=== PATIENT | female | born 1945 | race Caucasian/White ===

== ENCOUNTER 2024-09-30 12:46 | Outpatient (CLI) | payer MEDICARE, BC, SELFPAY ==
--- NOTE | 2024-09-30 13:00 | CRLHL7_ITS ---
For Patients: As a result of the Century Cures Act, medical imaging exams and procedure reports are released immediately into your electronic medical record. You may view this report before your referring provider. If you have questions, please contact your health care provider. Indication: Scoliosis. Technique: Noncontrast sagittal and axial T1, T2, and sagittal STIR sequences are provided. Comparison: Lumbar radiographs 09/20/2024 Findings: Levoscoliosis with apex at L4 and dextroscoliosis with apex at T12. No compression fractures. No prevertebral or paraspinal edema. Modic type 2 degenerative changes at T11-12, L1-2, L3-4, L4-5 and L5-S1. Modic type 1 degenerative changes at L5-S1 and T12-L1. The conus medullaris is normal in signal and located at L1-2. No aggressive osseous lesions. Degenerative grade 1 anterolisthesis at L4-5. Right hepatic cysts. Atrophy of the right paraspinal muscles. T12-L1: Mild disc bulge eccentric to left and left facet arthrosis with ligamentum flavum buckling. No significant spinal canal stenosis. Mild-moderate left neural foraminal narrowing. No right neural foraminal narrowing. L1-2: Moderate interspace narrowing. Mild disc bulge and endplate osteophytic ridging. Mild facet arthrosis. Mild left neural foraminal narrowing. No right neural foraminal narrowing. No significant spinal canal stenosis. L2-3: Moderate interspace narrowing. Diffuse disc bulge. Moderate facet arthrosis. Mild right lateral recess stenosis. Mild neural foramen narrowing bilaterally. L3-4: Moderate interspace narrowing. Mild disc bulge and right lateral endplate osteophytic ridging. Small left central disc protrusion without significant stenosis. Moderate right and mild left facet arthrosis. Sxxa-vk-gkrytxjo right neural foraminal narrowing. No left neural foraminal narrowing. L4-5: Moderate interspace narrowing. Grade 1 anterolisthesis. Uncovering of the disc. Advanced facet arthrosis and ligamentum flavum buckling. Mild to moderate right lateral recess stenosis and possible impingement of the traversing right L5 nerve roots. Moderate-severe right neural foraminal narrowing with likely impingement of the exiting right L4 nerve roots. Mild left neural foramen narrowing. L5-S1: Moderate interspace narrowing. Mild disc bulge contacts the traversing right S1 nerve roots. Mild bilateral neural foramen narrowing. Impression: 1. No fractures. Biconvex curvature of the lumbar spine with apex to left at L4 and apex to the right at T12. Multilevel endplate degenerative changes. 2. At L4-5, degenerative grade 1 anterolisthesis with mild to moderate right lateral recess stenosis and possible impingement of the traversing right L5 nerve roots. Moderate-severe right neural foraminal narrowing with likely impingement of the exiting right L4 nerve roots. 3. At L5-S1, disc bulge contacts the traversing right S1 nerve roots without libertad impingement. 4. Milder degenerative changes at remaining levels. Dictated by Rordigo Rivera MD @ 10/01/2024 8:38:31 AM (Electronically Signed)
== END 2024-09-30 12:47 | disposition home or self-care (01) ==
LOC: MRI 12:48
PROVIDERS: PCP Family Medicine; Visit Provider Physician Assistant
DX: M41.9 Scoliosis, unspecified (principal); M51.26 Other intervertebral disc displacement, lumbar region; M51.27 Other intervertebral disc displacement, lumbosacral region; M54.50 Low back pain, unspecified; M25.552 Pain in left hip
CPT/HCPCS: 72148

== ENCOUNTER 2024-12-12 10:46 | Outpatient (CLI) | payer MEDICARE, BC, SELFPAY ==
--- NOTE | 2024-12-12 11:00 | CT_ITS ---
Patient: KAUR FLOR Facility:?[facility] Patient ID:?[id number] Site Patient ID:?[id number]. Site :?[id number] Study:?CT-Spine Lumbar WITHOUT-12/12/2024 11:17:10 AM Ordering Physician:Vika Mcclure Final Report: INDICATION: Sacrococcygeal disorders, pain, lumbar spondylosis. TECHNIQUE: Lumbar spine CT was performed without the administration of intravenous contrast. COMPARISON: : Lumbar spine MRI 09/30/2024. FINDINGS: Moderate/severe scoliotic curvature of the thoracolumbar spine with levoconvex curvature of the lower lumbar spine, dextroconvex curvature of the upper thoracolumbar spine, grade 1 right lateral listhesis of L2 on L3, and grade 1 anterolisthesis of L4 on L5. No evidence of acute displaced fracture. The vertebral body heights are maintained. Multilevel degenerative changes including disc space height loss, endplate, and bone marrow changes. Multilevel moderate facet joint hypertrophy. Significant findings by level: T12-L1: Moderate left neural foraminal stenosis due to disc space height loss, disc bulge, and facet joint hypertrophy. Disc bulge effaces the thecal sac without significant spinal canal narrowing. L1-L2: Mild left neural foraminal stenosis due to disc space height loss, disc/osteophyte complex, and facet joint hypertrophy. No significant spinal canal narrowing. L2-L3: Mild neuroforaminal stenosis bilaterally with abutment of the exiting left L2 nerve root due to disc space height loss, far left lateral disc bulge, and facet joint hypertrophy. Disc bulge effaces the thecal sac without significant spinal canal narrowing. L3-L4: Moderate right neural foraminal stenosis due to disc space height loss, disc/osteophyte complex, and facet joint hypertrophy. No significant spinal canal narrowing. L4-L5: Partial effacement of the right lateral recess with possible abutment of the descending right L5 nerve root, severe right neural foraminal stenosis with abutment of the exiting right L4 nerve root, and mild left neural foraminal stenosis due to disc space height loss, anterolisthesis, disc bulge/disc uncovering, and facet joint hypertrophy. L5-S1: Partial effacement of the right lateral recess with abutment of the descending right S1 nerve root, better evaluated on prior MRI. Mild neural foraminal stenosis bilaterally due to disc space height loss, disc/osteophyte complex, and facet joint hypertrophy.. The visualized soft tissues are within normal limits. IMPRESSION: 1. Moderate/severe scoliotic curvature of the thoracolumbar spine with grade 1 right lateral listhesis of L2 on L3 and grade 1 anterolisthesis of L4 on L5. 2. Degenerative changes including multilevel mild, moderate, and severe neural foraminal stenosis and multilevel abutment of descending and exiting nerve roots as detailed above. No significant spinal canal stenosis. Please note that all CT scans at this facility use dose modulation, iterative reconstruction, and/or weight-based dosing when appropriate to reduce radiation dose to as low as reasonably achievable. Dictated by Gary Easton MD @ 12/12/2024 6:44:49 PM Signed by:?Gary Easton MD @12/12/2024 6:44:49 PM (Electronic Signature)
--- NOTE | 2024-12-12 11:00 | CRLHL7_ITS ---
For Patients: As a result of the Cures Act, medical imaging exams and procedure reports are released immediately into your electronic medical record. You may view this report before your referring provider. If you have questions, please contact your health care provider. EXAM: CT OF THE PELVIS, WITHOUT CONTRAST CLINICAL INDICATION: Sacrococcygeal disorder and pain. COMPARISON STUDIES: Lumbar spine CT from same day. TECHNICAL: Non-contrast CT of the pelvis with axial images. Sagittal oblique and coronal oblique reformatted images were created. FINDINGS: OSSEOUS STRUCTURES: No fracture, callous formation or periosteal reaction. No worrisome osseous lesion. Benign bone island in the right acetabulum. No evidence for chronic avascular necrosis. JOINT SPACES: Right Hip: Mild joint space narrowing and hypertrophic change. No joint effusion. Left Hip: Mild joint space narrowing and hypertrophic change. No joint effusion. SI Joints: Mild degenerative sclerosis and hypertrophic change bilaterally, right greater than left. No ankylosis. Pubic Symphysis: Mild degenerative changes. MUSCLES AND TENDONS: No intramuscular mass or hematoma. No muscle atrophy. No retracted tendon tear. SOFT TISSUES: No subcutaneous edema, fluid collection or hematoma. INTRAPELVIC CONTENTS: No free fluid or hematoma. No inguinal hernia. Hysterectomy. Surgical clips in the pelvis. Colonic diverticula. IMPRESSION: 1. Mild degenerative changes in the pubic symphysis, hips and SI joints. 2. Hysterectomy. 3. Colonic diverticula. 4. Benign bone island in the right acetabulum. Please note that all CT scans at this facility use dose modulation, iterative reconstruction, and/or weight-based dosing when appropriate to reduce radiation dose to as low as reasonably achievable. Dictated by Adrien Seymour MD @ 12/13/2024 10:41:48 AM (Electronically Signed)
== END 2024-12-12 10:47 | disposition home or self-care (01) ==
LOC: CT 10:48
PROVIDERS: PCP Family Medicine; Visit Provider Physician Assistant
DX: M53.3 Sacrococcygeal disorders, not elsewhere classified (principal); K57.30 Diverticulosis of large intestine without perforation or abscess without bleeding; M47.816 Spondylosis without myelopathy or radiculopathy, lumbar region
CPT/HCPCS: 72131; 72192

== ENCOUNTER 2025-01-31 13:34 | Emergency (ER) | payer MEDICARE, BC, SELFPAY ==
--- OUTSIDE RECORDS SUMMARY | 2025-01-31 13:37 | XMS_ITS | Clinical Summary ---
Author Organization [facility] Address [address] [place] [address] Care Team Providers Care Embroiderer Hand Name Role Phone Inactive, Administrativel Primary Care Provider Source Comments If you need additional information that is not available on Care Everywhere, please contact our Medical Records Department during business hours (Monday - Monday, 8 am - 5 pm) at . During nonbusiness hours, please contact our Trauma and Emergency Center at .[facility] [place] Allergies Active Allergy Reactions Criticality Noted Date Comments Metoclopramide Other 04/05/2016 . Medications * Medications may not be up to date as of this document. Always verify current medications with the patient. estradiol (ESTRACE) 0.5 mg tablet Take 1 Tab by mouth every other day. 0 02/08/2016 Active oxyCODONE-acetam inophen (PERCOCET-EQUIVA LENT) 5-325 mg tablet Take 0.5 Tabs by mouth every 6 hours as needed. 0 03/08/2016 Active traZODone (DESYREL-EQUIVAL ENT) 50 mg tablet Take 1 Tab by mouth bedtime. 0 03/23/2016 Active valACYclovir (VALTREX) 1 gram tablet Take by mouth as directed:. 2 03/31/2016 Active buPROPion XL (WELLBUTRIN XL) 300 mg extra long release tablet Take 1 Tab by mouth daily. 1 02/08/2016 Active diazepam (VALIUM-EQUIVALE NT) 5 mg tablet Take 1 Tab by mouth daily. 5 03/08/2016 Active levothyroxine 100 mcg tablet Take 1 Tab by mouth daily. 1 02/08/2016 Active spironolactone (ALDACTONE-EQUIV ALENT) 25 mg tablet Take 1 Tab by mouth daily. 4 03/16/2016 Active SUMAtriptan (IMITREX) 50 mg tablet Take 0.5 Tabs by mouth as needed For migraine. May repeat in 2 hours if needed.. 6 03/31/2016 Active Active Problems No known active problems Social History Tobacco Use Types Packs/Day Years Used Date Smoking Tobacco: Never Smokeless Tobacco: Never Tobacco Cessation:Counseling Given: No Comments Unknown Sex and Gender Information Value Date Recorded Sex Assigned at Not on file Legal Sex Female 4:16 PM CDT Gender Identity Not on file Sexual Orientation Not on file Obstetrics History Last Filed Vital Signs Vital Sign Reading Time Taken Comments Blood Pressure 140/52 04/05/2016 1:09 PM CDT Pulse 104 04/05/2016 1:09 PM CDT Temperature - - Respiratory Rate - - Oxygen Saturation - - Inhaled Oxygen Concentration - - Weight 55.1 kg (121 lb 7.6 oz) 04/05/2016 1:09 P M CDT Height - - Body Mass Index - - Plan of Treatment Not on file Care Teams Embroiderer Hand Relationship Specialty Start Date End Date Inactive, Administrativel [address] [facility] [address] PCP - General 04/06/16
--- OUTSIDE RECORDS SUMMARY | 2025-01-31 13:37 | XMS_ITS | Data Portability ---
Author Organization [place] - [facility], [facility] Address [address] [place] [address] Care Team Providers Care Fuller Brush Worker Name Role Phone LAUREN CREWS Primary Care Provider [phone] Assessment Encounter Date Assessment Date Assessment LastModified by Organization Details LastModified Time 12/03/2024 12/03/2024 Assessment Multilevel Spondylosis L4-L5 Spondylolisthesis L4-S1 nerve root compression w/ LLE Radic Degenerative scoliosis SIJ dysfunction Plan: -Discussed the patient's physical exam and reviewed their imaging - Discussed all treatment options and agreed upon the following: - All questions answered to the patient's satisfaction - They will call the clinic or return if they have any interim concerns to wear the brace during activity - Activity: WBAT, Instructed to BLTs, avoid strenuous activity and heavy lifting - Pain control: recommended course of OTC NSAIDs and tylenol if no medical contraindications - Imaging: L/P CT w/o of spine ordered - FU: Patient to return to the clinic w/ [facility] Not available 12/03/2024 13:59:04 Plan of Treatment Reminders Order Date Submit Date Provider Last Modified By Organization Details Last Modified Time Details Appointments FOLLOW UP 15 2024 01:00P Booker Jeffers MD Not available Not available Not available Lab None recorded . Referral None recorded . Procedures None recorded . Surgeries None recorded . Imaging None recorded . Medication Orders None recorded . Patient TargetsNo targets recorded. Patient Instructions Encounter Date Encounter Id Patient Instructions Last Modified By Organization Details Last Modified Time 12/03/2024 [id number] Discussion: I discussed the clinical findings with the patient. All questions were answered. Risk factors reviewed with the patient and a L/P CT w/o was ordered. Synopsis: 12/03/24, GOLDEN, CHARLES: L MR w/o (09/30/24) at [facility]: Multilevel Spondylosis ahaberer Not available 12/03/2024 13:59:40 Reason for Referral None Reported. Results Created Date Observation Date Name Description Value Unit Range Abnormal Flag Note LastModifiedBy Organization Detail LastModifiedTime 11/28/19 25 09/30/2024 MRI, lumba r spine , w/o contr ast No observ ation record ed. [email or web address] Not Available 2024 12:35:55 11/29/1903/13/2003 MRI, lumba r spine , w/o contr ast No observ ation record ed. [email or web address] Not Available 2024 12:54:42 12/14/19 25 12/12/2024 CT, pelvi s, w/o contr ast No observ ation record ed. [facility] [address] [place], [address], 12/17/2024 11:19:24 12/17/19 25 12/12/2024 CT, lumba r spine , w/o contr ast No observ ation record ed. [facility] [address] [place], [address], 12/17/2024 11:19:25 12/21/19 25 12/12/2024 CT, lumba r spine , w/o contr ast No observ ation record ed. [address], [place], [address], 12/25/2024 10:24:41 Result Notes None recorded. Medical Equipment None Reported. Allergies Allergen ID Allergen Name Allergen Category Reaction Reaction Severity Criticality Documentation Date Start Date Code Code System Note Provider Name and Address Organization Details Recorded Time 60504 metoclopr amide hydrochlo ride medicatio n Not available Not available high 12/03/20242011 41539 6 RxNorm unrec ogniz ed react ion (text : Behav ioral Distu rbanc es, code: 07592 006) (from exter nal sourc e) Zoie Talbot null, [place] - [facility] 12:56:00 83396 gabapenti n medicatio n Not available Not available Not available 12/03/2024 92352 RxNoTYLER Suarez [facility] 12:55:46 83866 Reglan medicatio n Not available Not available Not available 12/03/2024 9230 RxMyesharm Zoie saucedo [facility] 12:55:57 Medications Name Sig Start Date Stop Date Status Note LastModified by Organization Details LastModified Time amoxicillin 500 mg capsule TAKE 4 CAPSULES BY MOUTH ONE HOUR PRIOR TO DENTAL TREATMENT . 12/03 completed Not Available Not Available Not Available trazodone 50 mg tablet TAKE 1/2 TO 1 TABLET BY MOUTH AT BEDTIME NEEDED FOR SLEEP active Not Available Not Available No t Available valacyclovi r 1 gram tablet TAKE TWO TABLETS BY MOUTH EVERY 12 HOURS FOR 1 DAY NEEDED FOR COLD SORES 12/03 completed Not Available Not Available Not Available sumatriptan 50 mg tablet TAKE ONE-HALF TABLET BY MOUTH TWICE A DAY NEEDED FOR MIGRAINE 2HRS APART MAX 200MG IN 24HRS active Not Available Not Available No t Available sulfamethox azole 800 mg-trimetho prim 160 mg tablet TAKE ONE TABLET BY MOUTH TWICE A DAY FOR 3 DAYS 12/03 completed Not Available Not Available Not Available spironolact one 25 mg tablet TAKE ONE-HALF TABLET BY MOUTH EVERY DAY active Not Available Not Available No t Available levothyroxi ne 88 mcg tablet TAKE ONE TABLET BY MOUTH EVERY DAY 12/03 completed Not Available Not Available Not Available clindamycin phosphate 1 % topical solution APPLY 10 TO 15 DROPS TO SCALP TWO TIMES A DAY FOR FLARES 12/03 completed Not Available Not Available Not Available modafinil 100 mg tablet TAKE ONE TABLET BY MOUTH EVERY MORNING active Not Available Not Available No t Available bupropion HCl XL 300 mg 24 hr tablet, extended release TAKE ONE TABLET BY MOUTH EVERY DAY active Not Available Not Available No t Available L-Thyroxine 88 mcg active Not Available Not A vailable Not Available Wellbutrin SR 300 mg active Not Available Not Available Not Available oxycodone 10 mg tablet TAKE ONE TABLET BY MOUTH EVERY 4 HOURS NEEDED. MAX OF 6 TABLETS IN 24 HOURS. MUST LAST 30 DAYS active Not Available Not Available No t Available Vitals Date Recorded Body height Body mass index (BMI) Body weight Provider Name and Address Organization Details Last Updated DateTime 12/03/2024 165.1 cm 20.8 kg/m2 92947.05 brodie Talbot [place] [employer] [facility] 12/03/2024 13:08:50 Social History Question Answer Notes LastModified by [employer] Details LastModified Time Tobacco Smoking Status Never Smoker Zoie saucedo [place] [employer] [facility] 12/03/2024 12:58:19 What Was The Date Of Your Most Recent Tobacco Screening? 12/03/2024 Information not available 12/03/2024 Has Tobacco Cessation Counseling Been Provided? No Information not available 12/03/2024 Sex: Unknown Functional Status Question Answer Note LastModified by [employer] Details LastModified Time Do you use any illicit or recreational drugs? No Information not available 12/03/2024 Do you or have you ever used any other forms of tobacco or nicotine? No Information not available 12/03/2024 What is your level of alcohol consumption? None Information not available 12/03/2024 Mental Status None recorded. Family History Relationship Description Onset Age of this Age Resolved Age Notes LastModified by Organization Details LastModified Time Father No current problems or disability Not available 12/03 13:09:13 Mother No current problems or disability Not available 12/03 13:09:13 Medical History Condition Response Muscle, Joint, or Bone Problems Y Arthritis Y Headaches Y GI Problems Y Gynecological HistoryNo gynecological history recorded. Obstetrics History GPAL:G 0 P 0 0 0 0 Past Encounters Encounter ID Performer Location Encounter Start Date Encounter Closed Date Diagnosis/Indication Diagnosis SNOMED-CT Code Diagnosis ICD10 Code Diagnosis Note [id number] ORLY HSIEH PA-C [facility] [address] [facility] [address] [place] [address] 12/03/2024 12:43:25 12/11/2024 14:38:45 Lumbar spondylosis 565141033 M47.816 Lumbar spondylolisthesis 5686761899 43120 M43.16 Degenerati on of lumbar intervertebral disc 90679374 M51.362 Spinal matt nosis of lumbar region 41531937 M48.061 Stenosis o f intervertebral foramina 4778870508 09 M48.00 Scoliosis of lumbar spine 294113257 M41.9 Sacroiliac disorder 2027 46373 M53.3 Health Concerns Section Related Observation LastModified by Organization Detai ls LastModified Time None Recorded Concern Status LastModified by Organization Details LastModified Time None Recorded Advance Directives Directive None Recorded Payers Insurance Date Sequence Insurance Name Policy Number Policy [place] Covered Member ID Villa Member ID Guarantor Name 01/27/2025 1 [employer] (MEDICARE [place]PLACEMENT PPO) [id number] Aisha Raman [id number] Aisha Raman Notes Date Note Type Note Provider Name and Address Organization Details Recorded Time 12/03/2024 text/html Chief Complaint: HPI:Aisha is a 79-year-old female who presents today to establish care with our team at [facility]. She has a longstanding history of back pain spanning over 40 years, for which she has sought various treatments. Aisha has been diligent in her efforts to manage her pain, having undergone physical therapy at multiple locations, with the most recent session ending in September of 2024 at [facility] in [place], [place]. She has tried numerous bracing mechanisms and received several injections, the last being a transforaminal lumbar epidural steroid injection in December 2023. In her quest for relief, Aisha has also explored radiofrequency ablations, acupuncture, TENS units, caaz-gfw-usuoxob supplements, lidocaine patches, and a regimen of medications including Tylenol, Cymbalta, Tramadol, Gabapentin, Celebrex, Percocet, and is currently on oxycodone 10mg prescribed by an outside provider. She reports that oxycodone offers some relief but fails to alleviate pain while walking. Her mobility is limited, as she can only stand for about 30 minutes before needing to sit down due to pain. 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 Today, she presents with a lumbar MRI from September 09, 2024, which we reviewed together and noted listhesis degeneration, nerve impingements in the lower lumbar area, and some SIJ dysfunction, although she is unsure if she has received SIJ injections. We have updated her protocol checklist, ordering a lumbar and pelvic CT scan to be done in [place], [place], and arranged for a follow-up with Dr. Jeffers for a surgical consultation after the imaging is obtained. I have encouraged Aisha to contact me with any questions, comments, or concerns she may have. Pain level right now: 6/10Pain range: 9/10 ORLY HSIEH PA-C [address], [place], [address], [facility] - [facility] 12/03/2024 13:59:54 OBGyn Episode No OBEpisode recorded.
--- OUTSIDE RECORDS SUMMARY | 2025-01-31 13:37 | XMS_ITS | Clinical Summary ---
Author Organization [facility] Address [address] [place] [id number] Care Team Providers Care Cloud Architect Name Role Phone Gary Matthews MD Unavailable Unavailable Luisana Benjamin DO Primary Care Provider [phone] Allergies Active Allergy Reactions Criticality Noted Date Comments Gabapentin *Unknown 01/06/2025 Metoclopramide Hcl Behavioral Disturbances,*Unkno wn Medium 01/26/2012 Quinolones Other - Describe In Comment Field 01/27/2022 Not allergy but CONTRAINDICATED with EDS Medications MULTIVITAMIN ORAL Take 1 tablet by mouth once daily. Active ferrous sulfate 325 mg delayed release tabletIndicatio ns:Iron deficiency anemia, unspecified iron deficiency anemia type 1 tab daily 90 tablet 1 08/22/19 18 Active ascorbic acid SR (VITAMIN C) 500 mg capsule Take 2 capsules by mouth once daily. 0 03/12/20 20 Active Cranberry 400 mg capsule Take by mouth. 0 09/24/19 22 Active valACYclovir (VALTREX) 1 gram tabletIndicatio ns:Hx of cold sores TAKE TWO TABLETS BY MOUTH EVERY 12 HOURS FOR 1 DAY NEEDED FOR COLD SORES 12 Tablet 03/19/20 24 Active buPROPion (WELLBUTRIN XL) 300 mg Extended-Releas e tabletIndicatio ns:Depression, recurrent 300mg po daily 90 Tablet 3 05/07/20 24 Active SUMAtriptan 50 mg tabletIndicatio ns:Other migraine without status migrainosus, not intractable TAKE ONE-HALF TABLET BY MOUTH TWICE A DAY NEEDED FOR MIGRAINE MINIMUM 2 HOURS APART MAX 200 MG IN 24 HOURS 18 Tablet 3 10/15/19 25 Active levothyroxine 88 mcg tabletIndicatio ns:Hypothyroidi sm, unspecified type TAKE ONE TABLET BY MOUTH EVERY DAY 90 Tablet 3 11/12/19 25 Active modafiniL 100 mg tabletIndicatio ns:Depression, recurrent,Ehler s-Danlos, hypermobile type (HC),Other fatigue Take 1 Tablet (100 mg) by mouth once daily in the morning. 30 Tablet 2 11/27/19 25 Active traZODone 50 mg tabletIndicatio ns:Insomnia, unspecified type Take 0.5-1 Tablets (25-50 mg) by mouth at bedtime if needed for Sleep. 90 Tablet 1 12/17/19 25 Active spironolactone 25 mg tabletIndicatio ns:Acne, unspecified acne type TAKE ONE-HALF TABLET BY MOUTH EVERY DAY 45 Tablet 01/07/20 25 Active oxyCODONE 10 mg tabletIndicatio ns:Other chronic pain TAKE ONE TABLET BY MOUTH EVERY 4 HOURS NEEDED MAXIMUM 6 TABLETS IN 24 HOURS. MUST LAST 30 DAYS 180 Tablet 01/26/20 25 Active spironolactone (ALDACTONE) 25 mg tabletIndicatio ns:Acne, unspecified acne type 1/2 tablet daily 45 Tablet 3 01/04/20 24 025 Discontinued oxyCODONE 10 mg tabletIndicatio ns:Other chronic pain TAKE ONE TABLET BY MOUTH EVERY 4 HOURS NEEDED MAXIMUM 6 TABLETS IN 24 HOURS, MUST LAST 30 DAYS 180 Tablet 12/28/19 25 025 Discontinued Active Problems Problem Noted Date Diagnosed Date Major depressive disorder, recurrent episode, mo derate 04/10/2023 Generalized anxiety disorder 04/10/2023 Other osteoporosis without current pathological fracture 02/13/2022 Overview (02/13/2022): Dexa January 2022 +osteoporosis. Recommend treatment. Patient reports prior decreased bone density before 2018 and was on fosamax for approximately 1 month and noted thumb pain after 2 weeks, stopped and resolved. 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 See scanned [facility] Hand arthritis 06/06/2016 Overview (08/17/2016): See [facility] scanned Osteopenia 06/06/2016 Overview (06/06/2016): Dexa 09/18/2006 T score -2.1, on fosamax. 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 Benjamin) 01/06/2025 Travel 01/04/2025 Refill [facility] [address] [place] [address] Luisana Benjamin DO Refill Request (Spironolactone) 01/01/2025 Travel 12/27/2024 2:20 PM CDT Office Visit [facility] [address] [place] [address] Luisana Benjamin DO Follow Up (discuss spine management ); Medication Management (would like to discuss oxycodone ) 12/27/2024 Travel 12/24/2024 Travel 12/14/2024 Refill [facility] [address] [place] [address] Luisana Benjamin DO Refill Request (Trazodone) 12/12/2024 Orders Only [facility] Scanner 1 scan: (1-Ord) [facility], CT SPINE LUMBAR, 12/12/2024 12/12/2024 Orders Only [facility] Scanner 1 scan: (1-Ord) [facility], PELVIS WO CON, 12/12/2024 11/26/2024 Refill [facility] [address] [place] [address] Yamilet Dong MD Refill Request (Modafinil/) 11/20/2024 Travel 11/11/2024 9:35 AM CDT Office Visit [facility] [address] [place] [address] Luisana Benjamin DO Hip Pain/problem (Injection in left hip bursa) 11/11/2024 Travel 11/09/2024 Refill [facility] [address] [place] [address] Luisana Benjamin DO Refill Request (Levothyroxine) 11/08/2024 Travel 11/06/2024 11:40 AM CDT Office Visit [facility] [address] [place] [address] Luisana Benjamin DO Medication Management; Immunization/Injection 11/05/2024 Travel from Last 3 Months Immunizations Immunization Administration Dates Next Due COVID-19 VACCINE SPIKEVAX (M ODERNA 50MCG/0.5ML) 12YO+ PFS 11/06/2024,04/30/2024,01/04/2024,2023 COVID-19 vaccine (Pfizer-Bio NTech 30mcg/0.3mL) 12YO+ GIBRAN-SUCROSE PF, MDV 01/27/2022 COVID-19 vaccine (Pfizer-Bio NTech 30mcg/0.3mL) PF, MDV 04/29/2021 Hepatitis A, Unspecified 08/16/2013 INFLUENZA, IIV3 PF (AGE >= 6 MO) 04/25/2007 Influenza A (H1N1), Inactiva dinh (Age >=3 Years) 07/15/2009 Influenza, High-dose Inactivated 05/09/2016,03/12,03/31/2014 Influenza, High-dose Quadriv alent Inactivated 05/27/2020 Influenza, IIV3 (Age >=3 years) 05/10/2013,04/21,04/25/2007 Influenza, Inactivated AIIV4 (Age 65+ Years) Preserv Free 03/30/2023,05/03/2022,05/13/2021 Influenza, Inactivated IIV3 (Age 65+ Years) Preserv Free 04/30/2024,05/29/2019,03/13/2018,2016 Pneumococcal Poly,23-Valent (Pneumovax) 02/15/2011 Pneumococcal conj 13-Valent (Prevnar 13) 10/27/2014,02/17/2011 Tdap 04/19/2021,08/16/2013 Zoster (Zostavax-ZVL, live) 12/20/2012 Family History Medical History Relation Name Comments Rheum arthritis Mother Melanoma Sister Relation Name Status Comments Father Mother Sister Social History Tobacco Use Types Packs/Day Years Used Date Smoking Tobacco: Never Passive Smoke Exposure: Never Smokeless Tobacco: Never Tobacco Cessation:Counseling Given: Not Answered Comments:05/07/2024 Alcohol Use Standard Drinks/Week Comments Yes 0 (1 standard drink = 0.6 oz pur e alcohol) 1 drink a amonth PHQ-2 Answer Date Recorded PHQ-2 TOTAL SCORE 2 12/27/2024 Social Connections Answer Date Recorded Do you often feel lonely or isolated from those around you? 0 08/06/2024 Alcohol Use Answer Date Recorded How often do you have a drink containing alcohol ? 1 03/26/2024 Average Number of Drinks Not on file 024 Frequency of Binge Drinking Not on file 03/10 Financial Resource Strain Answer Date R ecorded Difficulty of Paying Living Expenses 3 08/06/2024 Difficulty of Paying Living Expenses Not on file 08/06/2024 Food Insecurity Answer Date Recorded Do you worry your food will run out before you are able to buy more? 1 08/06/2024 Transportation Needs Answer Date Record ed Does lack of transportation keep you from medica l appointments? 1 08/06/2024 Does lack of transportation keep you from work, meetings or getting things that you need? 1 08/06/2024 Housing Stability Answer Date Recorded What is your housing situation today? 1 08/06/2024 Utilities Answer Date Recorded Do you have trouble paying f or utilities (for example, heat, electricity, water, phone)? 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 Gender Identity Not on file Sexual Orientation Not on file Obstetrics History Last Filed Vital Signs Vital Sign Reading Time Taken Comments Blood Pressure 142/83 01/06/2025 1:09 PM CDT Pulse 85 01/06/2025 1:09 PM CDT Temperature 36.7 C (98.1 F) 01/06/2025 1:09 PM CDT Respiratory Rate 22 12/13/2022 10:20 AM CDT Oxygen Saturation 97% 01/06/2025 1:09 PM CDT Inhaled Oxygen Concentration - - Weight 57.2 kg (126 lb 1.6 oz) 12/27/2024 2:19 P M CDT Height 162.6 cm (5' 4) 05/07/2024 11:47 AM CDT Body Mass Index 21.65 05/07/2024 11:47 AM CDT Plan of Treatment Upcoming Encounters Date Type Department Care Team (Late st Contact Info) Description 03/04/2025 12:45 PM CDT Office Visit [facility] [address] [place] [address] [place] [address] [place] [address] Health Maintenance Due Date Last Done Comments Medicare Wellness for age 65+ 2010 Zoster (shingles) series for age 50+ (2 of 3) 02/14/2013 12/20/2012 RSV vaccine for adults or (1 - 1-dose 75+ series) 2020 Influenza Vaccine (#1) 2025 , 03/30/2023, 05/03/2022, Additional history exists BMI (ht and wt on same day) for age 18+ 05/07/2025 05/07/2024, 10/19/2023, 05/13/2021, Additional history exists Depression screening for age 12+ 12/27/2025 12/27/2024, 05/07/2024, 03/26/2024, Additional history exists Tetanus booster 04/19/2031 04/19/2021, 08/16/2013 Pneumococcal series for age 50+ Completed 10/27/2014, 02/17/2011, 02/15/2011 Hepatitis C screening for age 18-79 Completed 02/25/2019 DEXA/DXA scan for age 65+ Completed 02/08/2022 COVID-19 vaccine series Completed 11/07/19, 04/30/2024, 01/04/2024, Additional history exists Hepatitis B series for 19+ Aged Out N o longer eligible based on patient's age to complete this topic Procedures Procedure Name Priority Date/Time Associated Diagnosis Comments SCAN-CT INTERPRETATION 12:00 AM CDT SCAN-CT INTERPRETATION 12:00 AM CDT TSH Routine 11/06/2024 12:59 PM CDT Hypothyroidism, unspecified type XR DXA BONE DENSITY 2 SITES AXIAL Routine 02/08/2022 1:18 PM CDT Osteopenia, unspecified location Other specified disorders of bone density and structure, multiple sites ANTI HCV Routine 02/25/2019 2:27 PM CDT Need for hepatitis C screening test from Last 3 Months or Most Recently Relevant to Health Maintenance Results * SCAN-CT INTERPRETATION (12/12/2024 12:00 AM CDT) Only the most recent of2 resultswithin the time period is included. Anatomical Region Laterality Modality Other us Scanner OTHER Final Result * TSH (11/06/2024 12:59 PM CDT) TSH 1.62 0.40 - 4.50 mIU/L [facility] Blood BLOOD SPECIMEN / Unknown 11/06/2024 12:59 PM CDT 11/06/2024 1:00 PM CDT Luisana Benjamin DO CHEMISTRY Final Resu lt [facility] [address] [place] [address], [facility] [address] [place] [address] * (ABNORMAL) XR DXA BONE DENSITY 2 SITES AXIAL (02/08/2022 1:18 PM CDT) Anatomical Region Laterality Modality Spine, HIPS, HIPL, HIPR Other Impressions 02/09/2022 4:41 PM CDT Osteoporosis. RECOMMENDATIONS: The National Osteoporosis Foundation recommends pharmacologic treatment for patients with T-scores of -2.5 or less, patients with prior history of fragility fractures, or patients with 10-year probability of greater than 3% at hips or greater than 20% of suffering major osteoporotic fractures. Recommend continued optimization of calcium and vitamin D intake through dietary means and/or supplementation and regular exercise. Consider pharmacologic therapy for osteoporosis. Follow-up bone density reading in 2 years if therapy initiated to assess therapeutic efficacy. Rossi Stewart PA-C [facility] 02/09/2022 Narrative 02/09/2022 4:41 PM CDT For Patients: Results are automatically released to your [facility] account once available, in compliance with federal regulations. This means that you may see your results before your provider has had a chance to review them. Please allow 2-3 business days for your provider to comment on the results. XR DXA Bone Mineral Density (BMD) EXAM LOCATION: [facility] [address] [facility] [address] PATIENT NAME: Aisha Raman DATE OF : 1945 EXAM DATE: 02/08/2022 REQUESTING PROVIDER: Luisana Benjamin DO GENDER AT : female HEIGHT: 5' 4 (05/13/2021) WEIGHT: 125 lb (01/27/2022) MENOPAUSAL STATUS: Postmenopausal RACE/ETHNICITY: White RISK FACTORS: Height Loss (2 inches or more), History of Fragility Fracture (at a major site), Weight < 127 lbs. and White Race CURRENT MEDICATION FOR BONE LOSS: Alendronate (Fosamax) INDICATION: Follow-up of existing osteopenia COMPARISON DATE(S): None DXA scans are compared to prior studies for a patient only when the two (or more) studies were performed on the same scanner. It is not possible to compare data generated on one scanner to data from another because there are not standards in DXA equipment. This applies even if the two scanners are made by the same inspector insulation. PROCEDURE: Dual-energy x-ray absorptiometry performed with routine technique. Reporting is completed in the form of a T-score. The T-score represents the standard deviation from peak bone mass based on young healthy adult. A Z-score is used for diagnosis in premenopausal women, and for men under the age of 50. FINDINGS: RESULT LUMBAR SPINE L1 - L4(L2) BMD: 1.224 g/cm2 T-Score: + 0.3 Z-Score: + 2.3 Change from prior: None RESULTS FEMUR Left femoral neck BMD: 0.667 g/cm2 T-Score: - 2.7 Z-Score: - 0.5 Change from prior: None Right femoral neck BMD: 0.593 g/cm2 T-Score: - 3.2 Z-Score: - 1.1 Change from prior: None Left hip BMD: 0.661 g/cm2 T-Score: - 2.8 Z-Score: - 0.8 Change from prior: None Right hip BMD: 0.5767 g/cm2 T-Score: - 3.5 Z-Score: - 1.5 Change from prior: None WHO criteria: Normal: T-score at or above -1 SD Osteopenia: T-score between -1.1 and -2.4 SD Osteoporosis: T-score at or below -2.5 SD Luisana Benjamin DO DEXA Final Resu lt * ANTI HCV (02/25/2019 2:27 PM CDT) Pathologist [facility] HEPATITIS C ANTIBODY Non-React bozena Non-React bozena 02/25/2019 9:06 PM CDT [facility] Comment:Antibodies to HCV no t detected; does not exclude the possibility of exposure to HCV. Blood BLOOD SPECIMEN / Unknown Venipuncture / Unknown 02/25/2019 2:27 PM CDT 02/25/2019 2:27 PM CDT us Luisana Singerlinnea DO SEND OUTS Final Resu lt [facility] [address] [place] [address], [place] from Last 3 Months or Most Recently Relevant to Health Maintenance Insurance [employer] Member Subscriber Plan / Payer ( fective 2013-Present) Name:Aisha Raman Relation to Subscriber:Self Name:Aisha Raman Payer ID:[id number] (NAIC) Type:Not on file Address: [address] [employer] MEDICARE PART B HB ONLY MEDICARE PART A HB ONLY BLUE CROSS [employer]OW BLUE HB ONLY BLUE [employer] BLUE PB ONLY Advance Directives * Full Code (Latest Code Status on File) Date Activated Date Inactivated Comments 11/15/2016 9:57 AM 11/15/2016 2:18 PM * Full Code Date Activated Date Inactivated Comments 11/02/2016 10:18 PM 11/03/2016 9:09 PM * Full Code Date Activated Date Inactivated Comments 05/20/2016 9:16 AM 05/20/2016 1:48 PM Care Teams Cloud Architect Relationship Specialty Start Date End Date Luisana Benjamin DO [address] [facility] [address] PCP - General Family Practice 05/03/16 Gary Matthews MD Surgery - Orthopedics 09/16/13
[2025-01-31 13:49] VITALS: BP 141/87; PULSE 95; RESP 18; TEMP 36.6; O2SAT 98; BMI 20.8
--- NOTE | 2025-01-31 14:01 | CRLHL7_ITS ---
For Patients: As a result of the Century Cures Act, medical imaging exams and procedure reports are released immediately into your electronic medical record. You may view this report before your referring provider. If you have questions, please contact your health care provider. Indication: Fall, left knee pain Technique: Three views left knee Comparison: 01/05/2021 Findings/Impression: Bones: No evidence of fracture surrounding the hardware. Joint spaces: Status post left total knee replacement. Large knee effusion. Soft tissues: Unremarkable. Dictated by Hayder Etienne MD @ 01/31/2025 2:39:30 PM (Electronically Signed)
--- NOTE | 2025-01-31 14:06 | ED.GENADULT ---
HPI - General Adult General Date Seen: 01/31/25 Chief complaint: Fall/Minor Trauma Stated complaint: Fell can't put weight on left leg Time Seen by Provider: 01/31/25 14:06 History of Present Illness HPI narrative: 79 yo F Related Data Home Medications ?Medication ?Instructions ?Recorded ?Confirmed bupropion HCl 300 mg 24 hr tablet, 300 mg PO DAILY 12/16/22 09/20/24 extended release levothyroxine 88 mcg tablet 88 mcg PO DAILY 12/16/22 09/20/24 oxycodone 10 mg tablet mg PO 12/16/22 09/20/24 spironolactone 25 mg tablet 12.5 mg PO 3XW 12/16/22 09/20/24 sumatriptan succinate 50 mg tablet mg PO 12/16/22 09/20/24 trazodone 50 mg tablet 50 mg PO QPM 12/16/22 09/20/24 modafinil 100 mg tablet 100 mg PO QAM 09/20/24 09/20/24 Allergies Allergy/AdvReac Type Severity Reaction Status Date / Time metoclopramide (From Reglan) Allergy Unknown Verified 09/20/24 10:24 [facility] Medical History (Updated 09/20/24 @ 12:54 by Steffany Verde PA-C) Controlled substance agreement signed ?Z79.899 - Other intermediate (current) drug therapy (ICD-10) Wrist fracture ?S62.109A - Fracture of unspecified carpal bone, unspecified wrist, initial encounter for closed fracture (ICD-10) Varicose vein of leg ?I83.90 - Asymptomatic varicose veins of unspecified lower extremity (ICD-10) Hypertension ?I10 - Essential (primary) hypertension (ICD-10) H/O supraventricular tachycardia ?Z86.79 - Personal history of other diseases of the circulatory system (ICD-10) Gastric ulcer ?K25.9 - Gastric ulcer, unspecified as acute or chronic, without hemorrhage or perforation (ICD-10) DJD (degenerative joint disease) ?M19.90 - Unspecified osteoarthritis, unspecified site (ICD-10) Atrial fibrillation ?I48.91 - Unspecified atrial fibrillation (ICD-10) History of recent blood transfusion ?Z92.89 - Personal history of other medical treatment (ICD-10) History of migraine ?Z86.69 - Personal history of other diseases of the nervous system and sense organs (ICD-10) Chronic pain ?G89.29 - Other chronic pain (ICD-10) Generalized anxiety disorder ?F41.1 - Generalized anxiety disorder (ICD-10) Major depressive disorder, recurrent episode, moderate ?F33.1 - Major depressive disorder, recurrent, moderate (ICD-10) Depression, recurrent ?F33.9 - Major depressive disorder, recurrent, unspecified (ICD-10) Other osteoporosis without current pathological fracture ?M81.8 - Other osteoporosis without current pathological fracture (ICD-10) Hand arthritis ?M19.049 - Primary osteoarthritis, unspecified hand (ICD-10) DDD (degenerative disc disease), lumbar ?M51.369 - Other intervertebral disc degeneration, lumbar region without mention of lumbar back pain or lower extremity pain (ICD-10) Degenerative scoliosis in adult patient ?M41.50 - Other secondary scoliosis, site unspecified (ICD-10) Severe anemia ?D64.9 - Anemia, unspecified (ICD-10) Lorin esophagitis ?B37.81 - Candidal esophagitis (ICD-10) Odynophagia ?R13.10 - Dysphagia, unspecified (ICD-10) Hypothyroidism ?E03.9 - Hypothyroidism, unspecified (ICD-10) Osteopenia ?M85.80 - Other specified disorders of bone density and structure, unspecified site (ICD-10) Sepsis ?A41.9 - Sepsis, unspecified organism (ICD-10) Urinary tract infection ?N39.0 - Urinary tract infection, site not specified (ICD-10) 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, unspecified (ICD-10) Surgical History (Updated 09/18/24 @ 14:50 by Alejandra Malone ~ SUSTAINABLE AGRICULTURE SPECIALIST, SUSTAINABLE AGRICULTURE SPECIALIST) H/O thyroidectomy ?Z98.890 - Other specified postprocedural states (ICD-10) ?Z90.89 - Acquired absence of other organs (ICD-10) H/O thumb surgery ?Z98.890 - Other specified postprocedural states (ICD-10) H/O lithotripsy ?Z98.890 - Other specified postprocedural states (ICD-10) H/O: hysterectomy ?Z90.710 - Acquired absence of both cervix and uterus (ICD-10) History of cholecystectomy ?Z90.49 - Acquired absence of other specified parts of digestive tract (ICD-10) History of cataract surgery ?Z98.49 - Cataract extraction status, unspecified eye (ICD-10) H/O esophagogastroduodenoscopy ?Z98.890 - Other specified postprocedural states (ICD-10) History of left knee replacement (~2013) ?Z96.652 - Presence of left artificial knee joint (ICD-10) Social History Smoking Status: Never smoker How often do you have a drink containing alcohol: never AUDIT-C Alcohol total score: 0 Non-prescribed substance use: denies use Exam Const: Vital Signs, click to edit/add: Vital Signs - 24 hr 01/31/25 13:49 Temperature 97.8 F Pulse Rate [Pulse Oximeter] 95 Respiratory Rate 18 Blood Pressure [Ri ght Upper Arm] 141/87 H Pulse Oximetry 98 Oxygen Delivery Me thod Room Air Course Vital Signs Vital signs: Initial Vital Signs Temperature 97.8 F 01/31/25 13:49 Temperature Source Temporal Artery Scan 01/31/25 13:49 Pulse Rate 95 01/31/25 13:49 Respiratory Rate 18 01/31/25 13:49 Blood Pressure 141/87 H 01/31/25 13:49 Blood Pressure Mean 105 01/31/25 13:49 Blood Pressure Position Sitting 01/31/25 13:49 Pulse Oximetry 98 01/31/25 13:49 Oxygen Delivery Method Room Air 01/31/25 13:49 Vital Signs Temperature 97.8 F 01/31/25 13:49 Pulse Rate 95 01/31/25 13:49 Respiratory Rate 18 01/31/25 13:49 Blood Pressure 141/87 H 01/31/25 13:49 Pulse Oximetry 98 01/31/25 13:49 Oxygen Delivery Method Room Air 01/31/25 13:49 Temperature 97.8 F 01/31/25 13:49 Pulse Rate 95 01/31/25 13:49 Respiratory Rate 18 01/31/25 13:49 Blood Pressure 141/87 H 01/31/25 13:49 Pulse Oximetry 98 01/31/25 13:49 Oxygen Delivery Method Room Air 01/31/25 13:49 Medical Decision Making Imaging Data XR Knee: Attestation: I have reviewed the pertinent imaging results. Radiologist's impression: Findings/Impression: Bones: No evidence of fracture surrounding the hardware. Joint spaces: Status post left total knee replacement. Large knee effusion. Soft tissues: Unremarkable. Discharge Plan Discharge Prescriptions: No Action sumatriptan succinate 50 mg tablet PO oxycodone 10 mg tablet PO trazodone 50 mg tablet 50 mg PO QPM bupropion HCl 300 mg tablet extended release 24 hr 300 mg PO DAILY levothyroxine 88 mcg tablet 88 mcg PO DAILY spironolactone 25 mg tablet 12.5 mg PO 3XW modafinil 100 mg tablet 100 mg PO QAM Follow Up/Referrals: Luisana Benjamin DO [Primary Care Provider, Family Practice]
--- NOTE | 2025-01-31 15:14 | ED.FALL ---
HPI - Fall General Chief Complaint: Fall/Minor Trauma Stated Complaint: Fell can't put weight on left leg Time Seen by Provider: 01/31/25 14:06 History of Present Illness HPI Narrative: Patient is a 79-year-old woman with history of arthritis who fell going down the stairs today. She landed on her left knee and had severe pain and swelling. She is brought to the emergency room by her . The x-ray shows the previous total knee arthroplasty be intact with no obvious fracture. She currently has a large joint effusion. She takes Tylenol and oxycodone at home for pain. She is otherwise uninjured with no significant ankle and hip injury. She did not hit her head she did not lose consciousness. She simply tripped over the step. Related Data Home Medications ?Medication ?Instructions ?Recorded ?Confirmed bupropion HCl 300 mg 24 hr tablet, 300 mg PO DAILY 12/16/22 09/20/24 extended release levothyroxine 88 mcg tablet 88 mcg PO DAILY 12/16/22 09/20/24 oxycodone 10 mg tablet mg PO 12/16/22 09/20/24 spironolactone 25 mg tablet 12.5 mg PO 3XW 12/16/22 09/20/24 sumatriptan succinate 50 mg tablet mg PO 12/16/22 09/20/24 trazodone 50 mg tablet 50 mg PO QPM 12/16/22 09/20/24 modafinil 100 mg tablet 100 mg PO QAM 09/20/24 09/20/24 Allergies Allergy/AdvReac Type Severity Reaction Status Date / Time metoclopramide (From Reglan) Allergy Unknown Verified 09/20/24 10:24 Review of Systems Status of ROS: Reports: 10 or more systems reviewed and unremarkable except as noted in History and below [facility] Medical History Controlled substance agreement signed ?Z79.899 - Other termite treater (current) drug therapy (ICD-10) Wrist fracture ?S62.109A - Fracture of unspecified carpal bone, unspecified wrist, initial encounter for closed fracture (ICD-10) Varicose vein of leg ?I83.90 - Asymptomatic varicose veins of unspecified lower extremity (ICD-10) Hypertension ?I10 - Essential (primary) hypertension (ICD-10) H/O supraventricular tachycardia ?Z86.79 - Personal history of other diseases of the circulatory system (ICD-10) Gastric ulcer ?K25.9 - Gastric ulcer, unspecified as acute or chronic, without hemorrhage or perforation (ICD-10) DJD (degenerative joint disease) ?M19.90 - Unspecified osteoarthritis, unspecified site (ICD-10) Atrial fibrillation ?I48.91 - Unspecified atrial fibrillation (ICD-10) History of recent blood transfusion ?Z92.89 - Personal history of other medical treatment (ICD-10) History of migraine ?Z86.69 - Personal history of other diseases of the nervous system and sense organs (ICD-10) Chronic pain ?G89.29 - Other chronic pain (ICD-10) Generalized anxiety disorder ?F41.1 - Generalized anxiety disorder (ICD-10) Major depressive disorder, recurrent episode, moderate ?F33.1 - Major depressive disorder, recurrent, moderate (ICD-10) Depression, recurrent ?F33.9 - Major depressive disorder, recurrent, unspecified (ICD-10) Other osteoporosis without current pathological fracture ?M81.8 - Other osteoporosis without current pathological fracture (ICD-10) Hand arthritis ?M19.049 - Primary osteoarthritis, unspecified hand (ICD-10) DDD (degenerative disc disease), lumbar ?M51.369 - Other intervertebral disc degeneration, lumbar region without mention of lumbar back pain or lower extremity pain (ICD-10) Degenerative scoliosis in adult patient ?M41.50 - Other secondary scoliosis, site unspecified (ICD-10) Severe anemia ?D64.9 - Anemia, unspecified (ICD-10) Lorin esophagitis ?B37.81 - Candidal esophagitis (ICD-10) Odynophagia ?R13.10 - Dysphagia, unspecified (ICD-10) Hypothyroidism ?E03.9 - Hypothyroidism, unspecified (ICD-10) Osteopenia ?M85.80 - Other specified disorders of bone density and structure, unspecified site (ICD-10) Sepsis ?A41.9 - Sepsis, unspecified organism (ICD-10) Urinary tract infection ?N39.0 - Urinary tract infection, site not specified (ICD-10) 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, unspecified (ICD-10) Surgical History H/O thyroidectomy ?Z98.890 - Other specified postprocedural states (ICD-10) ?Z90.89 - Acquired absence of other organs (ICD-10) H/O thumb surgery ?Z98.890 - Other specified postprocedural states (ICD-10) H/O lithotripsy ?Z98.890 - Other specified postprocedural states (ICD-10) H/O: hysterectomy ?Z90.710 - Acquired absence of both cervix and uterus (ICD-10) History of cholecystectomy ?Z90.49 - Acquired absence of other specified parts of digestive tract (ICD-10) History of cataract surgery ?Z98.49 - Cataract extraction status, unspecified eye (ICD-10) H/O esophagogastroduodenoscopy ?Z98.890 - Other specified postprocedural states (ICD-10) History of left knee replacement (~2013) ?Z96.652 - Presence of left artificial knee joint (ICD-10) Social History Smoking Status: Never smoker How often do you have a drink containing alcohol: never AUDIT-C Alcohol total score: 0 Non-prescribed substance use: denies use Exam Narrative: Exam Narrative: EXAM GENERAL: Patient appears comfortable and well. EYES: No scleral icterus. ENT: Tympanic membranes and oropharynx normal. THYROID: no thyroid nodules or thyromegaly. LYMPH: No supraclavicular or cervical lymphadenopathy. SKIN: Visible skin seen during exam normal or with benign process only. EXT: No dependent lower extremity pedal edema. Significant swelling and pain to range of motion of the left knee. HEART: Regular rate and rhythm with no murmurs, rubs, or gallops. LUNGS: Clear to auscultation bilaterally with no crackles or wheezes. ABD: Soft, non tender, non distended. PSYCH: Good eye contact, speech is not pressured. Const: Vital Signs, click to edit/add: Vital Signs - 24 hr 01/31/25 13:49 Temperature 97.8 F Pulse Rate [Pulse Oximeter] 95 Respiratory Rate 18 Blood Pressure [Ri ght Upper Arm] 141/87 H Pulse Oximetry 98 Oxygen Delivery Me thod Room Air Course Course ED Course: Patient seen examined. No fracture is seen. She does appear to be significantly injured although I cannot rule out significant derangement of the knee given the degree of swelling even within normal x-ray. I do think that watchful waiting with a knee immobilizer crutches Tylenol continue oxycodone at home which she has from previous prescription is reasonable. She will be in touch with orthopedic clinic this coming week. He can apply ice and follow-up as needed. Vital Signs Vital signs: Initial Vital Signs Temperature 97.8 F 01/31/25 13:49 Temperature Source Temporal Artery Scan 01/31/25 13:49 Pulse Rate 95 01/31/25 13:49 Respiratory Rate 18 01/31/25 13:49 Blood Pressure 141/87 H 01/31/25 13:49 Blood Pressure Mean 105 01/31/25 13:49 Blood Pressure Position Sitting 01/31/25 13:49 Pulse Oximetry 98 01/31/25 13:49 Oxygen Delivery Method Room Air 01/31/25 13:49 Vital Signs Temperature 97.8 F 01/31/25 13:49 Pulse Rate 95 01/31/25 13:49 Respiratory Rate 18 01/31/25 13:49 Blood Pressure 141/87 H 01/31/25 13:49 Pulse Oximetry 98 01/31/25 13:49 Oxygen Delivery Method Room Air 01/31/25 13:49 Temperature 97.8 F 01/31/25 13:49 Pulse Rate 95 01/31/25 13:49 Respiratory Rate 18 01/31/25 13:49 Blood Pressure 141/87 H 01/31/25 13:49 Pulse Oximetry 98 01/31/25 13:49 Oxygen Delivery Method Room Air 01/31/25 13:49 Discharge Plan Discharge Clinical Impression: Injury of knee Patient Disposition: Home, Self-Care Condition: Stable Additional Instructions: Minimal weight-bearing Crutches Knee immobilizer Ice Tylenol Previously prescribed oxycodone Follow-up with your doctor next week. Activity Level: No Restrictions Discharge Diet: Regular Prescriptions: No Action sumatriptan succinate 50 mg tablet PO oxycodone 10 mg tablet PO trazodone 50 mg tablet 50 mg PO QPM bupropion HCl 300 mg tablet extended release 24 hr 300 mg PO DAILY levothyroxine 88 mcg tablet 88 mcg PO DAILY spironolactone 25 mg tablet 12.5 mg PO 3XW modafinil 100 mg tablet 100 mg PO QAM Follow Up/Referrals: Luisana Benjamin DO [Primary Care Provider, Family Practice] Stand Alone Forms: [employer] Info Instructions
== END 2025-01-31 15:43 | disposition home or self-care (01) ==
LOC: ED 15:29
PROVIDERS: Emergency Provider Internal Medicine; PCP Family Medicine
DX: M25.562 Pain in left knee (principal); W10.9XXA Fall (on) (from) unspecified stairs and steps, initial encounter
CPT/HCPCS: 73562; 99283